=== PATIENT | female | born 1990 | race African-American/Black ===

== ENCOUNTER 2023-10-12 07:24 | Emergency (ER) | payer OTHER ==
[2023-10-12 07:42] VITALS: BP 109/77; PULSE 80; RESP 18; BMI 23.3
[2023-10-12] MEDS ORDERED: ACETAMINOPHEN 500 MG TABLET (FP) PO ONE (08:07)
[2023-10-12] MEDS ORDERED: ACETAMINOPHEN 500 MG TABLET (FP) ONE (08:13)
== END 2023-10-12 08:23 | disposition home or self-care (01) ==
LOC: JER 07:24
DX: S09.90XA Unspecified injury of head, initial encounter (principal); R22.0 Localized swelling, mass and lump, head; H57.11 Ocular pain, right eye; Y04.2XXA Assault by strike against or bumped into by another person, initial encounter; Y93.89 Activity, other specified; Y92.9 Unspecified place or not applicable; Y92.039 Unspecified place in apartment as the place of occurrence of the external cause
CPT/HCPCS: 99283-25